=== PATIENT | female | born 1965 | race Caucasian/White ===

== ENCOUNTER 2021-12-31 10:19 | Emergency (ER) | payer MEDICARE, MEDICAID, SELFPAY ==
[2021-12-31 10:22] VITALS: BP 119/62; PULSE 104; RESP 17; TEMP 36.9; O2SAT 97; BMI 27.3
--- NOTE | 2021-12-31 10:52 | EDS_ITS ---
HPI History of Present Illness Chief Complaint: Rash Informant: patient Onset/Context/Timing Onset: Weeks Context: Gradual Onset Current Severity: Moderate Maximum Severity: Moderate Narrative Narrative: Patient presents with rash to her face and chest for the last 3 weeks. Patient states rash started out fairly simply but has been continuing to get worse. The skin on her face feels thickened. She saw urgent care in [place] but has not been on any prescription medications. She is taking Benadryl and loratadine [id number] as well as using cortisone cream topically. Patient denies recent medication change. [facility] Medical History Cardiac arrest with ventricular fibrillation Chronic systolic (congestive) heart failure Non-ischemic cardiomyopathy Prinzmetal angina Home Medications prednisone See Taper PO DAILY #63 tab 12/31/21 [Rx Last Taken Unknown] Allergy/AdvReac Type Severity Reaction Status Date / Time levofloxacin [From Levaquin] Allergy Hives Verified 12/31/21 10:20 nitroglycerin [From Tridil] Allergy Hives Verified 12/31/21 10:20 morphine AdvReac tachycardia Verified 12/31/21 10:20 nickel AdvReac Rash Verified 12/31/21 10:20 Sulfa (Sulfonamide AdvReac Unknown Verified 12/31/21 10:20 Antibiotics) oatmeal AdvReac Hives Uncoded 12/31/21 10:20 Family History Other CAD (coronary artery disease) Surgical History History of left heart catheterization (05/2012) Presence of automatic implantable cardioverter-defibrillator (05/31/12) Social History Smoking Status: Former smoker ROS ROS ED Constitutional Constitutional ED: Denies chills or fever(s) Eyes Eyes: Denies change in vision ENT ENT ED: Denies sore throat Cardiovascular Cardiovascular: Denies chest pain Respiratory/Chest Respiratory/Chest: Denies cough or dyspnea Gastrointestinal Gastrointestinal: Denies abdominal pain, nausea or vomiting Genitourinary Genitourinary ED: Denies dysuria Musculoskeletal Musculoskeletal: Denies back pain Integumentary Reports rash Neurologic Neurologic: Denies headache(s) or weakness Allergic/Immunologic Allergic/Immunologic ED: Denies urticaria EXAM Physical Exam Const Vital Signs: 12/31/21 10:22 Temperature 98.4 F Temperature Source Temporal Pulse Rate 104 H Respiratory Rate 17 Blood Pressure 119/62 Blood Pressure Mean 81 Pulse Ox 97 Oxygen Delivery Method Room Air Positive well nourished and well developed General Appearance ED: well developed HEENT Reports moist mucous membranes HEENT Narrative: No intraoral lesions. Eyes PERRL and EOMs intact bilaterally Neck supple Chest Wall inspection of chest normal and palpation of chest normal Resp normal respiratory effort and clear to auscultation bilaterally Cardio regular rate and regular rhythm GI non-tender Palpation: soft Extremity normal to inspection Neuro oriented x3 Sensorium / Orientation: alert Skin Skin Narrative: Slightly raised erythematous rash over the face and trunk. No vesicles noted. No target lesions. Skin slightly thickened over the maxilla. No open wounds. MDM MDM Treatment and Re-Evaluation Narrative: Patient is to continue Benadryl and loratadine. We will add steroid taper with 60 mg given here. Referral to dermatology provided. Discharge Plan Triage Chief Complaint: Rash ED Provider: Shari Shaikh Dx/Rx/DC Orders Clinical Impression: Dermatitis Instructions: Self-Care for Skin Rashes Prescriptions: New prednisone 10 mg tablet See Taper mg PO DAILY Qty: 63 RF: 0 Primary Care Provider: Brayden Chanel Referrals: Brayden Chanel MD [Primary Care Provider] - Thu Muhammad MD [NON-STAFF] - As Needed Lucian Aiken MD [STAFF PHYSICIAN] - As Needed Activity Restrictions/Additional Instructions: Please continue loratadine and Benadryl. Disposition Disposition: Home, Self Care
[2021-12-31] MEDS: predniSONE 20 MG Tablet 60 MG PO (10:58)
== END 2021-12-31 11:12 | disposition home or self-care (01) ==
LOC: ED 11:02
PROVIDERS: Emergency Provider Emergency Medicine; PCP Family Medicine; Visit Provider Emergency Medicine
DX: L30.9 Dermatitis, unspecified (principal)
CPT/HCPCS: 99283

== ENCOUNTER 2022-03-15 09:12 | Emergency (ER) | payer MEDICARE, MEDICAID, SELFPAY ==
[2022-03-15 09:14] VITALS: BP 158/98; PULSE 102; RESP 22; TEMP 36.3; O2SAT 99; BMI 27.6
--- NOTE | 2022-03-15 09:25 | ED.VIS.CHEST ---
HPI History of Present Illness Chief Complaint: Chest Pain Informant: patient Onset/Context/Timing Onset: Days (4) Activity at onset: gradual Timing: Continuous Quality: Positive for Sharp Location: Left Chest Worsened By: Exertion Relieved By: Nothing Associated Symptoms: Positive for Nausea, Diaphoresis, Dyspnea, Cough, Lightheadedness and Palpitations; Negative for Vomiting, Fever or Acid Reflux Narrative Narrative: Patient presents with chest pain that has been getting progressively worse over the last 4 days. Patient states that his gradually gotten worse. Patient describes her pain as sharp and stabbing. Patient states it is over the left upper chest and left shoulder area. Patient states it is constant. Patient states it is worse with activity. Patient admits to some nausea but denies any vomiting. Patient admits to some diaphoresis, shortness of breath, and cough. Patient also admits to some palpitations and lightheadedness. Patient states she has been taking her Lasix with minimal improvement. CVD Risk Factors: Negative for Hypertension, Diabetes, Hypercholesterolemia, Family History 1' </=55 or Smoking PE Risk Factors: Positive for Prior DVT or PE; Negative for Recent Travel/Surgery, Recent Immobilization, Cancer or OCP + Smoking + >/=35 PFSH [facility] Medical History Cardiac arrest with ventricular fibrillation Chronic systolic (congestive) heart failure Non-ischemic cardiomyopathy Prinzmetal angina Allergy/AdvReac Type Severity Reaction Status Date / Time levofloxacin [From Levaquin] Allergy Hives Verified 03/15/22 09:19 nitroglycerin [From Tridil] Allergy Hives Verified 03/15/22 09:19 morphine AdvReac tachycardia Verified 03/15/22 09:19 nickel AdvReac Rash Verified 03/15/22 09:19 Sulfa (Sulfonamide AdvReac Unknown Verified 03/15/22 09:19 Antibiotics) oatmeal AdvReac Hives Uncoded 03/15/22 09:19 Family History Other CAD (coronary artery disease) Surgical History History of left heart catheterization (05/2012) Presence of automatic implantable cardioverter-defibrillator (05/31/12) Social History Smoking Status: Former smoker ROS ROS ED Constitutional Constitutional ED: Denies chills or fever(s) Eyes Eyes: Denies blurry vision or change in vision ENT ENT ED: Denies rhinorrhea or sore throat Cardiovascular Cardiovascular: Reports chest pain and palpitations Respiratory/Chest Respiratory/Chest: Reports cough and dyspnea Gastrointestinal Gastrointestinal: Reports nausea; Denies abdominal pain or vomiting Genitourinary Genitourinary ED: Denies dysuria or hematuria Musculoskeletal Musculoskeletal: Reports back pain and neck pain Integumentary Denies abscess or rash Neurologic Neurologic: Denies headache(s) or weakness Allergic/Immunologic Allergic/Immunologic ED: Denies mouth swelling or urticaria EXAM Physical Exam Const Vital Signs: 03/15/22 09:14 03/15/22 09:20 03/15/22 09:31 Temperature 97.4 F L Temperature Source Oral Pulse Rate 102 H Respiratory Rate 22 H Respiratory Effort Normal Blood Pressure 158/98 H Blood Pressure Mean 118 Pulse Ox 99 Oxygen Delivery Method Room Air Room Air 03/15/22 10:36 03/15/22 11:39 03/15/22 12:05 Temperature 98.3 F Temperature Source Oral Pulse Rate 73 92 81 Respiratory Rate 16 14 14 Respiratory Effort Blood Pressure 129/73 H 127/75 H 122/68 H Blood Pressure Mean 91 92 86 Pulse Ox 97 97 96 Oxygen Delivery Method Room Air Room Air Positive well nourished and well developed General Appearance ED: well developed and NAD HEENT normocephalic and atraumatic Eyes PERRL and EOMs intact bilaterally Neck supple and no JVD Chest Wall palpation of chest normal Resp normal respiratory effort and clear to auscultation bilaterally Effort and Inspection: Negative for respiratory distress Cardio regular rate, regular rhythm and no murmurs GI normal to inspection, nondistended, normoactive bowel sounds, soft to palpation, non-tender and non-distended Extremity normal to inspection General Extremety ED: Negative for edema or tenderness General Extremity: Negative for edema Neuro oriented x3, CN's II-XII intact bilaterally and no sensory deficits noted Sensorium / Orientation: awake and alert Motor Exam: strength 5/5 throughout Psych mental status grossly normal Heart Score History: Moderately Suspicious ECG: Normal Age: >45 - <65 years Risk Factors: 1 or 2 Risk Factors Troponin: </= Normal Limit Score: 3 MDM MDM MDM Narrative Medical decision making narrative: Patient was given aspirin here. Patient has an allergy to nitroglycerin. EKG was obtained. On my interpretation, it showed a normal sinus rhythm with a rate of 96. TN interval, QRS interval, and QTc intervals were all normal. [place] was normal. There are no acute ST or T wave changes. CBC was within normal limits. PT was INR and PTT were normal. Basic metabolic profile showed a mild hypokalemia of 3.0. Patient was given a dose of potassium here. High-sensitivity troponin was normal. CTA of the chest was obtained. There is no acute pulmonary embolism or aortic dissection. There is no acute cardiopulmonary process noted. This was interpreted by the radiologist and reviewed by myself. BNP was normal. 2-hour repeat high-sensitivity troponin was obtained and was normal. Patient is feeling better on reevaluation. Patient was advised of her findings. Patient has a HEART score of 3. Patient was advised that this is low risk for acute cardiac event. Patient was instructed to follow-up with her primary care physician in 5 to 7 days. Patient was instructed return if worse in any way. Patient understood and was agreeable with the plan. All questions were answered. Lab Data Attestation: I reviewed the patient's lab results. Labs: Laboratory Results - last 24 hr 03/15/22 03/15/22 03/15/22 09:15 09:15 09:15 WBC 8.5 RBC 5.10 Hgb 15.0 Hct 42.9 MCV 84.1 MCH 29.4 MCHC 35.0 RDW Std Deviation 42.3 RDW Coeff of Reese 13.7 Plt Count 273 MPV 9.6 Immature Gran % (Auto) 0.400 Neut % (Auto) 73.7 H Lymph % (Auto) 18.3 L [place] % (Auto) 6.5 Eos % (Auto) 0.6 Baso % (Auto) 0.5 Absolute Neuts (auto) 6.3 Absolute Lymphs (auto) 1.56 Nucleated RBC % 0 PT 13.1 INR 1.0 APTT 35.9 Sodium 139 Potassium 3.0 L Chloride 108 H Carbon Dioxide 22.0 Anion Gap 9 BUN 13 Creatinine 0.85 Estim Creat Clear Calc 63.06 Est GFR (MDRD) Af Amer 88 Est GFR (MDRD) Non-Af 73 BUN/Creatinine Ratio 15.3 Glucose 227 H Calcium 10.0 Troponin I High Sens 7 B-Natriuretic Peptide 03/15/22 03/15/22 09:15 11:58 WBC RBC Hgb Hct MCV MCH MCHC RDW Std Deviation RDW Coeff of Reese Plt Count MPV Immature Gran % (Auto) Neut % (Auto) Lymph % (Auto) [place] % (Auto) Eos % (Auto) Baso % (Auto) Absolute Neuts (auto) Absolute Lymphs (auto) Nucleated RBC % PT INR APTT Sodium Potassium Chloride Carbon Dioxide Anion Gap BUN Creatinine Estim Creat Clear Calc Est GFR (MDRD) Af Amer Est GFR (MDRD) Non-Af BUN/Creatinine Ratio Glucose Calcium Troponin I High Sens 6 B-Natriuretic Peptide 30.2 Radiography CTA PE Study: No Evidence of PE and No Evidence of Dissection Diagnostic Testing: Clinical Impression(s) from Imaging Studies Chest CTA 03/15/22 09:30 IMPRESSION: Normal CTA chest examination, without a demonstrated pulmonary embolism or arterial dissection. Electronically Signed: Yoandy Park MD at 10:05 EDT Reading Location ID and State: [address] [place] [address] , Service support , EKG Initial EKG: Attestation: I personally reviewed and interpreted this EKG as follows: Interpretation: Sinus Rhythm (96) and No Acute Injury Pattern Prior EKG tracings: not available for review Prior: No Prior Discharge Plan Triage Chief Complaint: Chest Pain ED Provider: Jorge Wolf Dx/Rx/DC Orders Clinical Impression: Chest pain of uncertain etiology, Temporary high blood pressure Instructions: ED Chest Pain, Uncertain Cause Primary Care Provider: Brayden Chanel Referrals: Brayden Chanel MD [Primary Care Provider] - 5-7 Days Disposition Disposition: Home, Self Care
--- NOTE | 2022-03-15 09:30 | CT_ITS ---
STUDY: CTA CHEST REASON FOR EXAM: Female, 56 years old. Dyspnea RADIATION DOSAGE (If Supplied By Facility): CTDIvol = ( 9.11 ) mGy, DLP = ( 297.75 ) mGycm TECHNIQUE: The examination was performed with the intravenous administration of IV 100mL Isovue-370. Post-processing of the angiographic images was performed, with multiplanar reformation and 3D reconstruction. Individualized dose optimization techniques were used for this CT. COMPARISON: None. FINDINGS: Small benign-appearing bilateral axillary lymph nodes. Normal enhancement of the main pulmonary artery and right and left pulmonary arteries. Normal enhancement of the bilateral peripheral pulmonary arteries. There is no demonstrated pulmonary embolism. Normal thoracic aorta and visualized great vessels. There is no demonstrated aortic dissection. Normal heart and pericardium. No coronary calcification is seen. A dual-chamber pacemaker is seen. Normal mediastinum. Normal hilar regions. Normal visualized trachea and bronchi. The lungs are well expanded. Normal pulmonary parenchyma. Normal pleura. Normal chest wall structures. There are degenerative changes of thoracic spine. Fatty infiltration of the liver. CT/CTA Chest W/WO Contrast IMPRESSION: Normal CTA chest examination, without a demonstrated pulmonary embolism or arterial dissection. Electronically Signed: Yoandy Park MD at 10:05 EDT ,
--- NOTE | 2022-03-15 09:31 | EKG12_ITS ---
Test Reason : CP Blood Pressure : / mmHG Vent. Rate : 096 BPM Atrial Rate : 096 BPM P-R Int : 136 ms QRS Dur : 082 ms QT Int : 358 ms P-R-T Axes : 077 068 048 degrees QTc Int : 452 ms Normal sinus rhythm Normal ECG Confirmed by ANU GAINES, KIERRA ([id number]), metropolitan editor WEI MEREDITH ([id number]) on 03/18/2022 1:57:28 PM Referred By: B Confirmed By:KIERRA BRENNAN MD
[2022-03-15] MEDS: Aspirin 81 MG TAB.CHEW 324 MG PO (09:40)
[2022-03-15 09:51] LABS: Absolute Lymphocyte Count 1.56 X10^3/uL (0.83-4.51); Absolute Neutrophil Count 6.3 X10^3/uL (2.0-7.7); Basophil# 0.04 X10^3/uL; Basophil% 0.5 % (0-1); Eosinophil# 0.05 X10^3/uL; Eosinophils% 0.6 % (0-5); Hematocrit 42.9 % (37-47); Lymphocyte # 1.56 X10^3/ul (0.83-4.51); Lymphocyte % 18.3 % (19-41); Mean Corpuscular Hgb 29.4 pg (27.0-32.0); Mean Corpuscular Volume 84.1 fL (81-99); Mean Platelet Vol. 9.6 fl (6.2-12.0); Monocyte# 0.55 X10^3/uL; Monocyte% 6.5 % (0-10); NRBC Flagged by Analyzer 0 % (0-5); Neutrophil # 6.28 X10^3/uL (2.7-7.7); Neutrophil % 73.7 % (47-70); Platelet Count 273 K/mm3 (150-450); RBC Distribution Width CV 13.7 % (11.6-14.6); RBC Distribution Width SD 42.3 fl (35.1-43.9); White Blood Count 8.5 K/mm3 (4.4-11.0)
[2022-03-15 10:08] LABS: Anion Gap 9 (5-15); BUN 13 mg/dL (7-18); BUN/Creat Ratio 15.3 RATIO (10-20); Chloride 108 mmol/L (98-107); Creatinine, Serum 0.85 mg/dL (0.55-1.02); EST Glomerular Filtration Rate 73 mL/min (>60); Est Glom Filt Rate - Afr Amer 88 mL/min (>60); Estimated Creatinine Clearance 63.06 ml/min; Glucose 227 mg/dL (74-106); Prothrombin Time (Protime)PT. 13.1 SECONDS (11.7-14.9); Sodium Level 139 mmol/L (136-145); Troponin-I HS (w/2H Reflex) 7 pg/mL (3.0-54.0)
[2022-03-15 10:09] LABS: Partial Thromboplast Time 35.9 Seconds (24.1-36.2)
[2022-03-15 10:14] LABS: BNP,B-Type NATRIURETIC PEPTIDE 30.2 pg/mL (0-100)
[2022-03-15 10:36] VITALS: BP 129/73; PULSE 73; RESP 16; O2SAT 97
[2022-03-15 11:39] VITALS: BP 127/75; PULSE 92; RESP 14; O2SAT 97
[2022-03-15 11:47] LABS: Reflex Troponin-HS? (from REC) Y
[2022-03-15 12:05] VITALS: BP 122/68; PULSE 81; RESP 14; TEMP 36.8; O2SAT 96
[2022-03-15 12:34] LABS: Troponin-I HS 6 pg/mL (3.0-54.0)
[2022-03-15 13:12] VITALS: BP 114/63; PULSE 90; RESP 16; O2SAT 99
[2022-03-15] MEDS: Potassium Chloride Oral Tablet 20 MEQ 40 MEQ PO (13:26)
== END 2022-03-15 13:27 | disposition home or self-care (01) ==
PROVIDERS: Emergency Provider Emergency Medicine; PCP Family Medicine; Visit Provider Emergency Medicine
DX: R07.9 Chest pain, unspecified (principal); I50.22 Chronic systolic (congestive) heart failure; E87.6 Hypokalemia; R03.0 Elevated blood-pressure reading, without diagnosis of hypertension; Z86.74 Personal history of sudden cardiac arrest; Z95.810 Presence of automatic (implantable) cardiac defibrillator; Z87.891 Personal history of nicotine dependence
CPT/HCPCS: 71275; 80048; 83880; 84484; 85025; 85610; 85730; 93005; 99285; Q9967; A4216